=== PATIENT | female | born 1980 | race African-American/Black ===

== ENCOUNTER → 2019-08-14 | Outpatient (CLI) | payer MEDICAID | LOC: OD 14:04 | PROVIDERS: ATTEND Otolaryngology | DX: J30.9 Allergic rhinitis, unspecified (principal) | CPT/HCPCS: 36415; 82785; 86003 ==

== ENCOUNTER → 2019-09-12 | Outpatient (CLI) | payer MEDICAID ==
--- NOTE | 2019-09-12 19:10 | RADIOLOGY REPORT (SQ) ---
EXAM DESCRIPTION: CT SINUSES FOR ENT COMPLETED DATE/TIME: 09/12/2019 2:55 pm REASON FOR STUDY: J33.9 NASAL POLYP, UNSPECIFIED J33.9 NASAL POLYP, UNSPECIFIED COMPARISON: None. TECHNIQUE: Noncontrast scanning through the paranasal sinuses using bone algorithm. Reconstructed MPR images reviewed. All images stored on PACS. All CT scanners at this facility use dose modulation, iterative reconstruction, and/or weight based d osing when appropriate to reduce radiation dose to as low as reasonably achievable (ALARA). [facility]: Dose Right [facility]: CareDose [facility]: Dose Right [facility]: Teradose 4D [facility]: FanSnap RADIATION DOSE: CT Rad equipment meets quality standard of care and radiation dose reduction techniq ues were employed. CTDIvol: 46.4 mGy. DLP: 1324 mGy-cm.mGy. LIMITATIONS: None. FINDINGS: Right sinuses and drainage pathways: Post-surgical changes: None. Frontal sinus: Completely opacified Frontoethmoidal Recess: Completely opacified Anterior Ethmoid Sinuses: Completely opacified Posterior Ethmoid Sinuses: Near completely opacified Sphenoid Sinus: Air-fluid level from acute sinusitis, pterygoid recesses are present Sphenoethmoidal Recess: Opacified with mucous membrane thickening Maxillary Sinus: Circumferential mucous membrane thickening Ostiomeatal Complex: Occluded by mucous membrane thickening Left Sinuses and Drainage Pathways: Post-Surgical Changes: None. Frontal Sinus: Near completely opacified with air-fluid level Frontoethmoidal Recess: Near completely opacified Anterior Ethmoid Sinuses: Near completely opacified Posterior Ethmoid Sinuses: Near completely opacified Sphenoid Sinus: Air-fluid level from sinusitis, pterygoid recesses are present Sphenoethmoidal Recess: Normal. Maxillary Sinus: Near completely opacified Ostiomeatal Complex: Occluded by mucous membrane thickening Right Olfactory Fossa: No gross polyps. Left Olfactory Fossa: No gross polyps Middle Turbinate Hortensia Bullosa: No. Paradoxical Middle Turbinate: No. Atelectatic Uncinated Process: No. Frontal Kaylie Cell Type I: No. Frontal Kaylie Cell Type II: No. Interfrontal Sinus Septal Cell: None. Supra-Orbital Ethmoid: None. Frontal Bullar Cell: None. Suprabullar Bullar Cell: None. Sphenoethmoidal (Onodi) Cell: None. Pneumatization of the Anterior Clinoid Processes: No Hypoplastic Maxillary Sinus: None. Osteoneogenesis: None. Bone Dehiscence:None. Nasal Cavity: Normal. Nasal Septum: Midline Anatomic Variants: Right Vidian Canal: Normal. Left Vidian Canal: Normal. IMPRESSION: Pansinusitis TECHNICAL DOCUMENTATION: JOB ID: [id number] Quality ID # [id number]: Final reports with documentation of one or more dose reduction techniques (e.g., Au tomated exposure control, adjustment of the mA and/or kV according to patient size, use of iterative reconstruction technique) 2010 [employer]- All Rights Reserved Reading location - IP/workstation name: [email or web address]
== END ==
LOC: RAD 14:29
PROVIDERS: ATTEND Otolaryngology
DX: J33.9 Nasal polyp, unspecified (principal); J32.4 Chronic pansinusitis
CPT/HCPCS: 70486